=== PATIENT | male | born 1985 | race African-American/Black ===

== ENCOUNTER 2016-12-25 22:04 | Emergency (ER) | payer SELFPAY ==
[~2016-12-25] VITALS: Ht 180.3 cm; Wt 181.8 kg
[2016-12-26] MEDS ORDERED: IBUPROFEN 600MG TABLET PO ONE (04:30)
[2016-12-26 04:35] VITALS: BP 165/80
== END 2016-12-26 04:36 | disposition home or self-care (01) ==
LOC: ER 22:04
DX: H10.023 Other mucopurulent conjunctivitis, bilateral (principal)
CPT/HCPCS: 99282